=== PATIENT | female | born 1995 | race Caucasian/White ===

== ENCOUNTER 2019-03-02 09:09 | Emergency (ER) | payer OTHER, SELFPAY ==
[2019-03-02 09:20] VITALS: BP 125/74; PULSE 66; RESP 18; TEMP 36.6; O2SAT 98
[2019-03-02 10:26] LABS: WBC Urine None Seen (0-5/HPF)
[2019-03-02 10:42] LABS: RBC Urine 10-30/HPF (0-5/HPF); Squamous Epithelial Cell Urine 0-1 /HPF (0-5/HPF)
[2019-03-02 10:43] LABS: Bacteria Urine Few (2-10); Culture Indicated Urine Cult Not Indicated
--- NOTE | 2019-03-02 11:17 | DI.CT.S_ITS ---
PROCEDURE: CT KIDNEY URETER BLADDER (KUB) INDICATIONS: right sided flank pain TECHNIQUE: Noncontrast 5 mm thick sections acquired from the diaphragms to the symphysis. 5 mm thick coronal and sagittal reformats were then performed. For radiation dose reduction, the following was used: automated exposure control, adjustment of mA and/or kV according to patient size. COMPARISON: None. FINDINGS: Image quality: Excellent. Lung bases: Lung bases are clear. Heart size is normal. Urinary system: The right kidney is hypodense when compared to the left kidney and demonstrates moderate right-sided hydronephrosis with corresponding moderate hydroureter. There is a 2 mm calculus identified within the distal right ureter near the vesicoureteral junction (image 68, series 2). No additional right-sided renal calculi are appreciated. There is a 3 mm calculus evident and involving the upper portion of the left kidney. Vague parenchymal calcifications are also probably present within the more superior aspects of the left kidney. There is no hydronephrosis of the left kidney. No left ureteral calculi are identified. No significant urinary bladder wall thickening is evident. No definite renal lesions are appreciated. However, the kidneys are not adequately evaluated for parenchymal abnormalities without contrast. Other solid organs: The liver, spleen, adrenals, and pancreas appear to be within normal limits. Peritoneum and bowel: The stomach is unremarkable. The small bowel loops are nondilated. There is a large amount of stool identified within the distal colon. The appendix is not definitively identified. However, what is felt to represent the appendix (image 50, series 2) is normal in size. No free fluid or loculated fluid collection is appreciated. There is no free air. Nodes and vessels: No retroperitoneal or mesenteric adenopathy by size criteria. Aorta and inferior vena cava are normal in caliber. Pelvis: No free pelvic fluid. No inguinal hernias or adenopathy. No free fluid or loculated fluid collection is identified. The uterus and ovaries are not adequately evaluated, but do not appear to be enlarged. There may be a collapsing right ovarian cyst measuring up to 2 cm. Bones: No suspicious bony lesions. No vertebral body compression fractures. Mild straightening of the normal lumbar lordosis is present with slight dextroconvex curvature of the thoracolumbar junction. IMPRESSION: 1. At least partially obstructing distal right ureteral calculus measuring approximately 2 mm at the vesicoureteral junction with corresponding moderate hydronephrosis and hydroureter. 2. Nonobstructing left nephrolithiasis. No left-sided hydronephrosis. 3. The appendix appears to be within normal limits. 4. Probable constipation. No bowel obstruction. 5. Probable collapsing right ovarian cyst. The need for a pelvic ultrasound may be determined clinically. Dictated by: Yonny Balbuena M.D. on 03/02/2019 at 10:57 Approved by: Yonny Balbuena M.D. on 03/02/2019 at 11:01
[2019-03-02] MEDS: SODIUM CHLORIDE 0.9% 1,000 ML 1000 ML IV (11:44)
[2019-03-02] MEDS: ONDANSETRON 4 MG/2 ML INJ IV (11:50)
--- NOTE | 2019-03-02 11:50 | ED.FEMALEGU ---
HPI - Female Genitourinary <LUDWIG Caba - Last Filed: 03/02/19 16:10> General Chief complaint: Urogenital-Female Stated complaint: suspected UTI, back pain right side Time Seen by Provider: 03/02/19 11:03 Source: patient Mode of arrival: Ambulatory Limitations: no limitations History of Present Illness HPI Narrative: The patient is a 23-year-old female nonsmoker who denies pertinent medical history presents with a chief complaint of sudden onset of right-sided flank pain and hematuria this morning. She complains of inability to urinate. The pain is constant low-grade, but then gets worse at times with associated nausea with no vomiting. She states the pain is associated in her right flank. She denies any vaginal discharge, irregular vaginal bleeding, concern about sexually transmitted infections. She states she is having some bladder spasms, but no abdominal pain. She denies any fevers. She states that she has an allergy to penicillin but has taken amoxicillin in been fine. Related Data Previous Rx's Medication Instructions Recorded hydrocodone-acetaminophen [[employer]] 1 tab PO Q4-6H PRN #7 tab 03/02/19 ketorolac 10 mg PO TID PRN #15 tab 03/02/19 ondansetron 4 mg PO Q6H PRN #20 tab 03/02/19 tamsulosin [Flomax] 0.4 mg PO DAILY #7 cap 03/02/19 Review of Systems <LUDWIG Caba - Last Filed: 03/02/19 16:10> Review of Systems Narrative: GENERAL: Denies chills, fatigue, malaise, fever, sweats. HEENT: Denies sinus pain, ear pain, sore throat, difficulty swallowing, dizziness. RESPIRATORY: Denies dyspnea, cough, wheezing, hemoptysis, sputum. CARDIOVASCULAR: Denies chest pain, palpitations, orthopnea, edema, GASTROINTESTINAL: See HPI : See HPI MUSCULOSKELETAL: denies weakness, joint pain, or bony pain SKIN: Denies rash, skin lesions, or other NEUROLOGIC: Denies weakness, headache, numbness, change in speech, confusion, seizures, incoordination. PSYCHIATRIC: No concerning psychosocial issues. 12 point review of systems is negative except for those stated above Patient History <LUDWIG Caba - Last Filed: 03/02/19 16:10> alcohol intake frequency: 0-2 drinks per day Substance Use Type: does not use Exam <HEATHER Caba - Last Filed: 03/02/19 16:10> Narrative Exam Narrative: GENERAL: This is a well-nourished, well-developed patient, lying on her side in no acute distress HEAD: Atraumatic. Normocephalic. No temporal or scalp tenderness. EYES: Pupils equal round and reactive. Extraocular motions intact. No scleral icterus. No injection or drainage. ENT: Nose without bleeding, purulent drainage or septal hematoma. Throat without erythema, tonsillar hypertrophy or exudate. Uvula midline. Airway patent. NECK: Trachea midline. No JVD or lymphadenopathy. Supple, nontender, no meningeal signs. CARDIOVASCULAR: Regular rate and rhythm RESPIRATORY: Clear to auscultation. Breath sounds equal bilaterally. No wheezes, rales, or rhonchi. No cough. No increased respiratory effort. No accessory muscle use. GASTROINTESTINAL: Abdomen soft, diffusely tender to palpation, nondistended. No hepato-splenomegaly, or palpable masses. No guarding. EXTREMITIES: No clubbing, cyanosis, or edema. No joint tenderness, effusion, or edema noted. BACK: Nontender without deformity or crepitance. CVA tenderness on right side, no tenderness on left side NEURO: AOx3. SKIN: No rash or erythema on visible skin Initial Vital Signs Initial Vital Signs: Vital Signs Temperature 98 F 03/02/19 09:20 Pulse Rate 66 03/02/19 09:20 Respiratory Rate 18 03/02/19 09:20 Blood Pressure 125/74 03/02/19 09:20 Pulse Oximetry 98 03/02/19 09:20 <Cele Cardenas MD - Last Filed: 03/02/19 18:54> Initial Vital Signs Initial Vital Signs: Vital Signs Temperature 98 F 03/02/19 09:20 Pulse Rate 66 03/02/19 09:20 Respiratory Rate 18 03/02/19 09:20 Blood Pressure 125/74 03/02/19 09:20 Pulse Oximetry 98 03/02/19 09:20 Course <HEATHER Caba - Last Filed: 03/02/19 16:10> Orders Ordered: ED Orders 03/02/19 11:17 CT kidney ureter bladder (KUB) Stat 03/02/19 11:40 Complete Blood Count AUTO DIFF Stat Comprehensive Metabolic Panel Stat Lipase Stat Procalcitonin Stat Discontinued Medications Sodium Chloride (Normal Saline 0.9%) 1,000 mls @ 1,000 mls/hr IV BOLUS ONE Stop: 03/02/19 12:17 Last Infusion: 03/02/19 12:32 Dose: 0 mls/hr Documented by: Admin: 03/02/19 11:44 Dose: 1,000 mls/hr Documented by: JUSTUS Ketorolac Tromethamine (Toradol) 30 mg IV NOW ONE Stop: 03/02/19 11:49 Last Admin: 03/02/19 11:51 Dose: 30 mg Documented by: JUSTUS Ondansetron HCl (Zofran) 4 mg IV NOW ONE Stop: 03/02/19 11:18 Last Admin: 03/02/19 11:50 Dose: 4 mg Documented by: JUSTUS Vital Signs Vital signs: Vital Signs - 8 hr 03/02/19 13:00 Pulse Rate 84 Respiratory Rate 16 Blood Pressure 116/86 Pulse Oximetry 98 <Cele Cardenas MD - Last Filed: 03/02/19 18:54> Orders Ordered: ED Orders 03/02/19 11:17 CT kidney ureter bladder (KUB) Stat 03/02/19 11:40 Complete Blood Count AUTO DIFF Stat Comprehensive Metabolic Panel Stat Lipase Stat Procalcitonin Stat Discontinued Medications Sodium Chloride (Normal Saline 0.9%) 1,000 mls @ 1,000 mls/hr IV BOLUS ONE Stop: 03/02/19 12:17 Last Infusion: 03/02/19 12:32 Dose: 0 mls/hr Documented by: Admin: 03/02/19 11:44 Dose: 1,000 mls/hr Documented by: JUSTUS Ketorolac Tromethamine (Toradol) 30 mg IV NOW ONE Stop: 03/02/19 11:49 Last Admin: 03/02/19 11:51 Dose: 30 mg Documented by: JUSTUS Ondansetron HCl (Zofran) 4 mg IV NOW ONE Stop: 03/02/19 11:18 Last Admin: 03/02/19 11:50 Dose: 4 mg Documented by: JUSTUS Vital Signs Vital signs: Vital Signs - 8 hr 03/02/19 13:00 Pulse Rate 84 Respiratory Rate 16 Blood Pressure 116/86 Pulse Oximetry 98 MDM - Female Genitourinary <TRIXIE Caba- - Last Filed: 03/02/19 16:10> Differential Diagnosis Differential diagnosis: Likely urinary tract infection, cystitis and other (Pyelonephritis, kidney stone) Lab Data Attestation: I reviewed the patient's lab results. Result diagrams: 03/02/19 11:40 03/02/19 11:40 Labs: Lab Results 03/02/19 03/02/19 03/02/19 Range/Units 09:25 11:40 11:40 WBC 11.3 H (4.5-11.0) X10^3/uL RBC 4.91 (4.0-5.2) X10^6/uL Hgb 15.0 (12.0-16.0) g/dL Hct 42.4 (36-46) % MCV 86.3 (80-100) fL MCH 30.5 (26-34) PG MCHC 35.4 (30-36) % RDW 12.5 (11.6-14.8) % Plt Count 277 (150-400) X10^3/uL Neut % (Auto) 87.2 H (50-75) % Lymph % (Auto) 8.9 L (25-40) % [place] % (Auto) 3.6 (3-14) % Eos % (Auto) 0.1 L (2-4) % Baso % (Auto) 0.2 (0-2) % Neut # (Auto) 9900 H (1511-5549) /uL Lymph # (Auto) 1000 L (7944-2125) /uL [place] # (Auto) 400 (0-900) /uL Eos # (Auto) 0 (0-450) /uL Baso # (Auto) 0 (0-100) /uL Sodium 140 (137-145) mmol/L Potassium 3.6 (3.4-5.1) mmol/L Chloride 104 (98-107) mmol/L Carbon Dioxide 24 (22-32) mmol/L BUN 17 (7-17) mg/dL Creatinine 0.70 (0.52-1.04) mg/dL Estimated GFR > 60.0 (>60) mL/min BUN/Creatinine Ratio 24.3 H (6-22) Glucose 112 H (70-100) mg/dL Calcium 10.1 (8.4-10.2) mg/dL Total Bilirubin 0.9 (0.2-1.3) mg/dL AST 27 (14-36) IU/L ALT 18 (<35) IU/L Alkaline Phosphatase 82 (38-126) U/L Total Protein 8.6 H (6.3-8.2) g/dL Albumin 5.2 H (3.5-5.0) g/dL Globulin 3.4 (1.7-4.1) g/dL Albumin/Globulin Ratio 1.5 (1.0-2.8) Lipase 50 (23-300) U/L Procalcitonin (<0.5) ng/mL Urine RBC 10-30/hpf H (0-5/HPF) Urine WBC None seen (0-5/HPF) Ur Squamous Epith Cells 0-1 /hpf (0-5/HPF) Urine Bacteria Few (2-10) H (None) Ur Culture Indicated? Cult not indicated 03/02/19 Range/Units 11:40 WBC (4.5-11.0) X10^3/uL RBC (4.0-5.2) X10^6/uL Hgb (12.0-16.0) g/dL Hct (36-46) % MCV (80-100) fL MCH (26-34) PG MCHC (30-36) % RDW (11.6-14.8) % Plt Count (150-400) X10^3/uL Neut % (Auto) (50-75) % Lymph % (Auto) (25-40) % [place] % (Auto) (3-14) % Eos % (Auto) (2-4) % Baso % (Auto) (0-2) % Neut # (Auto) (5204-5852) /uL Lymph # (Auto) (3095-8660) /uL [place] # (Auto) (0-900) /uL Eos # (Auto) (0-450) /uL Baso # (Auto) (0-100) /uL Sodium (137-145) mmol/L Potassium (3.4-5.1) mmol/L Chloride (98-107) mmol/L Carbon Dioxide (22-32) mmol/L BUN (7-17) mg/dL Creatinine (0.52-1.04) mg/dL Estimated GFR (>60) mL/min BUN/Creatinine Ratio (6-22) Glucose (70-100) mg/dL Calcium (8.4-10.2) mg/dL Total Bilirubin (0.2-1.3) mg/dL AST (14-36) IU/L ALT (<35) IU/L Alkaline Phosphatase (38-126) U/L Total Protein (6.3-8.2) g/dL Albumin (3.5-5.0) g/dL Globulin (1.7-4.1) g/dL Albumin/Globulin Ratio (1.0-2.8) Lipase (23-300) U/L Procalcitonin < 0.05 (<0.5) ng/mL Urine RBC (0-5/HPF) Urine WBC (0-5/HPF) Ur Squamous Epith Cells (0-5/HPF) Urine Bacteria (None) Ur Culture Indicated? Point of Care Testing Test Results Negative Urine Dip Bedside Urine Glucose Negative Bedside Urine Bilirubin - Negative Bedside Urine Ketone - Negative Urine Specific [place] 1.025 Bedside Urine Occult Blood +++ Bedside Urine pH 6.5 Bedside Urine Protein +/- 15 Bedside Urine Urobilinogen - Negative Bedside Urine Nitrite - Negative Bedside Urine Leukocytes - Negative Esterase Imaging Data CT scan - abdomen/pelvis: Radiologist's Impression: [address] [place] [address] CT Scan Report Signed Patient: Angel Lino CMR#: [id number] : 1995Acct:[id number] Age/Sex: 23 FDate of Service: 03/02/19 Loc: ED Accession Number: [id number] Procedure: CT kidney ureter bladder (KUB) Ordering Provider: Kristie Wesley PROCEDURE: CT KIDNEY URETER BLADDER (KUB) INDICATIONS: right sided flank pain TECHNIQUE: Noncontrast 5 mm thick sections acquired from the diaphragms to the symphysis. 5 mm thick coronal and sagittal reformats were then performed. For radiation dose reduction, the following was used: automated exposure control, adjustment of mA and/or kV according to patient size. COMPARISON: None. FINDINGS: Image quality: Excellent. Lung bases: Lung bases are clear. Heart size is normal. Urinary system: The right kidney is hypodense when compared to the left kidney and demonstrates moderate right-sided hydronephrosis with corresponding moderate hydroureter. There is a 2 mm calculus identified within the distal right ureter near the vesicoureteral junction (image 68, series 2). No additional right-sided renal calculi are appreciated. There is a 3 mm calculus evident and involving the upper portion of the left kidney. Vague parenchymal calcifications are also probably present within the more superior aspects of the left kidney. There is no hydronephrosis of the left kidney. No left ureteral calculi are identified. No significant urinary bladder wall thickening is evident. No definite renal lesions are appreciated. However, the kidneys are not adequately evaluated for parenchymal abnormalities without contrast. Other solid organs: The liver, spleen, adrenals, and pancreas appear to be within normal limits. Peritoneum and bowel: The stomach is unremarkable. The small bowel loops are nondilated. There is a large amount of stool identified within the distal colon. The appendix is not definitively identified. However, what is felt to represent the appendix (image 50, series 2) is normal in size. No free fluid or loculated fluid collection is appreciated. There is no free air. Nodes and vessels: No retroperitoneal or mesenteric adenopathy by size criteria. Aorta and inferior vena cava are normal in caliber. Pelvis: No free pelvic fluid. No inguinal hernias or adenopathy. No free fluid or loculated fluid collection is identified. The uterus and ovaries are not adequately evaluated, but do not appear to be enlarged. There may be a collapsing right ovarian cyst measuring up to 2 cm. Bones: No suspicious bony lesions. No vertebral body compression fractures. Mild straightening of the normal lumbar lordosis is present with slight dextroconvex curvature of the thoracolumbar junction. IMPRESSION: 1. At least partially obstructing distal right ureteral calculus measuring approximately 2 mm at the vesicoureteral junction with corresponding moderate hydronephrosis and hydroureter. 2. Nonobstructing left nephrolithiasis. No left-sided hydronephrosis. 3. The appendix appears to be within normal limits. 4. Probable constipation. No bowel obstruction. 5. Probable collapsing right ovarian cyst. The need for a pelvic ultrasound may be determined clinically. Dictated by: Yonny Balbuena M.D. on 03/02/2019 at 10:57 Approved by: Yonny Balbuena M.D. on 03/02/2019 at 11:01 [facility] Narrative Medical decision making narrative: The patient is a 23-year-old female who presents with a chief complaint of sudden onset of flank pain. Given the sudden onset, I did obtain a CT scan of her kidneys ureter bladder to evaluate for potential stone. She has a right ureteral stone at 2 mm. Also discussed incidental findings of left nephrolithiasis, possible right ovarian cyst. She states that she recently had a transvaginal ultrasound is not surprised that she has a cyst. She also has no pain to palpation right lower quadrant, so I believe that this an incidental finding. Discussed at length pushing fluids, patient felt better Toradol, gave prescriptions of Toradol Zofran Flomax and [employer]. Discussed that [employer] can be constipating and sedating. Patient has no signs of infection in her urine, is nitrate negative, negative procalcitonin. Discussed at length that she is to follow up with primary care provider in the next few days, strain her urine. Discussed at length return precautions including fever, inability to keep down fluids. Discussed not combining Toradol with any other NSAIDs. Patient has no questions or concerns upon discharge and states understanding of return precautions as well as follow-up care. <Cele Cardenas MD - Last Filed: 03/02/19 18:54> Lab Data Labs: Lab Results 03/02/19 03/02/19 03/02/19 Range/Units 09:25 11:40 11:40 WBC 11.3 H (4.5-11.0) X10^3/uL RBC 4.91 (4.0-5.2) X10^6/uL Hgb 15.0 (12.0-16.0) g/dL Hct 42.4 (36-46) % MCV 86.3 (80-100) fL MCH 30.5 (26-34) PG MCHC 35.4 (30-36) % RDW 12.5 (11.6-14.8) % Plt Count 277 (150-400) X10^3/uL Neut % (Auto) 87.2 H (50-75) % Lymph % (Auto) 8.9 L (25-40) % [place] % (Auto) 3.6 (3-14) % Eos % (Auto) 0.1 L (2-4) % Baso % (Auto) 0.2 (0-2) % Neut # (Auto) 9900 H (4657-8134) /uL Lymph # (Auto) 1000 L (4075-4444) /uL [place] # (Auto) 400 (0-900) /uL Eos # (Auto) 0 (0-450) /uL Baso # (Auto) 0 (0-100) /uL Sodium 140 (137-145) mmol/L Potassium 3.6 (3.4-5.1) mmol/L Chloride 104 (98-107) mmol/L Carbon Dioxide 24 (22-32) mmol/L BUN 17 (7-17) mg/dL Creatinine 0.70 (0.52-1.04) mg/dL Estimated GFR > 60.0 (>60) mL/min BUN/Creatinine Ratio 24.3 H (6-22) Glucose 112 H (70-100) mg/dL Calcium 10.1 (8.4-10.2) mg/dL Total Bilirubin 0.9 (0.2-1.3) mg/dL AST 27 (14-36) IU/L ALT 18 (<35) IU/L Alkaline Phosphatase 82 (38-126) U/L Total Protein 8.6 H (6.3-8.2) g/dL Albumin 5.2 H (3.5-5.0) g/dL Globulin 3.4 (1.7-4.1) g/dL Albumin/Globulin Ratio 1.5 (1.0-2.8) Lipase 50 (23-300) U/L Procalcitonin (<0.5) ng/mL Urine RBC 10-30/hpf H (0-5/HPF) Urine WBC None seen (0-5/HPF) Ur Squamous Epith Cells 0-1 /hpf (0-5/HPF) Urine Bacteria Few (2-10) H (None) Ur Culture Indicated? Cult not indicated 03/02/19 Range/Units 11:40 WBC (4.5-11.0) X10^3/uL RBC (4.0-5.2) X10^6/uL Hgb (12.0-16.0) g/dL Hct (36-46) % MCV (80-100) fL MCH (26-34) PG MCHC (30-36) % RDW (11.6-14.8) % Plt Count (150-400) X10^3/uL Neut % (Auto) (50-75) % Lymph % (Auto) (25-40) % [place] % (Auto) (3-14) % Eos % (Auto) (2-4) % Baso % (Auto) (0-2) % Neut # (Auto) (3834-2338) /uL Lymph # (Auto) (0050-9790) /uL [place] # (Auto) (0-900) /uL Eos # (Auto) (0-450) /uL Baso # (Auto) (0-100) /uL Sodium (137-145) mmol/L Potassium (3.4-5.1) mmol/L Chloride (98-107) mmol/L Carbon Dioxide (22-32) mmol/L BUN (7-17) mg/dL Creatinine (0.52-1.04) mg/dL Estimated GFR (>60) mL/min BUN/Creatinine Ratio (6-22) Glucose (70-100) mg/dL Calcium (8.4-10.2) mg/dL Total Bilirubin (0.2-1.3) mg/dL AST (14-36) IU/L ALT (<35) IU/L Alkaline Phosphatase (38-126) U/L Total Protein (6.3-8.2) g/dL Albumin (3.5-5.0) g/dL Globulin (1.7-4.1) g/dL Albumin/Globulin Ratio (1.0-2.8) Lipase (23-300) U/L Procalcitonin < 0.05 (<0.5) ng/mL Urine RBC (0-5/HPF) Urine WBC (0-5/HPF) Ur Squamous Epith Cells (0-5/HPF) Urine Bacteria (None) Ur Culture Indicated? Point of Care Testing Test Results Negative Urine Dip Bedside Urine Glucose Negative Bedside Urine Bilirubin - Negative Bedside Urine Ketone - Negative Urine Specific [place] 1.025 Bedside Urine Occult Blood +++ Bedside Urine pH 6.5 Bedside Urine Protein +/- 15 Bedside Urine Urobilinogen - Negative Bedside Urine Nitrite - Negative Bedside Urine Leukocytes - Negative Esterase Discharge Plan Departure Patient Disposition: Home Clinical Impression: Right ureteral calculus, Left nephrolithiasis Ovarian cyst Qualifiers: Laterality: right Qualified Code(s): N83.201 - Unspecified ovarian cyst, right side Discharge Date/Time: 03/02/19 13:00 Instructions: DI for Kidney Stones, DI for Ovarian Cyst Activity Restrictions/Additional Instructions: Today we found a 2 mm stone in your right ureter. I believe this is what is causing her pain. We also found a small kidney stone in your left kidney. In addition there is a probable ovarian cyst on your right side. Please follow up with primary care provider regarding this. I have sent four prescriptions to [facility] in [place] Please push fluids over the next few days. Please follow-up with primary care provider in the next few days. Please strain your urine. Please monitor for signs of urinary tract infection including fever, burning with urination etcetera please follow up with these occur I have given you a prescription of Toradol. This is an NSAID. Do not combine it with other NSAIDs such as Aleve or ibuprofen. I suggest taking it with some food, as it can irritate your stomach. I have given you a prescription of a narcotic for pain. Be aware that this can be constipating and sedating. I encouraged taking with a stool softener, pushing fluids and fiber. Do not take and drive, operate heavy machinery, etc. Do not combine it with any other sedating substances such as alcohol. The combination of narcotics and alcohol and/or other sedatives can be lethal. Please be aware that we do not provide refills of controlled substances in the emergency department. Please follow up with your primary care provider. Prescriptions: New tamsulosin [Flomax] 0.4 mg capsule 0.4 mg PO DAILY Qty: 7 RF: 0 ketorolac 10 mg tablet 10 mg PO TID PRN (Reason: pain) Qty: 15 RF: 0 hydrocodone-acetaminophen [[employer]] 5-325 mg tablet 1 tab PO Q4-6H PRN (Reason: pain) Qty: 7 RF: 0 ondansetron 4 mg tablet,disintegrating 4 mg PO Q6H PRN (Reason: nausea and vomiting) Qty: 20 RF: 0 Referrals: [facility] [Provider Group]
[2019-03-02] MEDS: KETOROLAC 60 MG/2 ML VIAL 30 MG IV (11:51)
[2019-03-02 11:53] LABS: Add Manual Diff / Slide Review NO; Basophils Absolute Auto 0 /uL (0-100); Basophils Percent Auto 0.2 % (0-2); Eosinophils Absolute Auto 0 /uL (0-450); Eosinophils Percent Auto 0.1 % (2-4); Hematocrit 42.4 % (36-46); Lymphocytes Absolute Auto 1000 /uL (1100-4500); Lymphocytes Percent Auto 8.9 % (25-40); Mean Corpuscular HGB Conc 35.4 % (30-36); Mean Corpuscular Hemoglobin 30.5 PG (26-34); Mean Corpuscular Volume 86.3 fL (80-100); Monocytes Absolute Auto 400 /uL (0-900); Monocytes Percent Auto 3.6 % (3-14); Neutrophils Absolute Auto 9900 /uL (1500-7000); Neutrophils Percent Auto 87.2 % (50-75); Platelet Count 277 X10^3/uL (150-400); Red Blood Cell Count 4.91 X10^6/uL (4.0-5.2); Red Cell Distribution Width 12.5 % (11.6-14.8); White Blood Cell Count 11.3 X10^3/uL (4.5-11.0)
[2019-03-02 12:03] LABS: Alanine Aminotransferase 18 IU/L (<35); Albumin 5.2 g/dL (3.5-5.0); Albumin Globulin Ratio 1.5 (1.0-2.8); Alkaline Phosphatase 82 U/L (38-126); Aspartate Aminotransferase 27 IU/L (14-36); BUN Creatinine Ratio 24.3 (6-22); Bilirubin Total 0.9 mg/dL (0.2-1.3); Blood Urea Nitrogen 17 mg/dL (7-17); Calcium 10.1 mg/dL (8.4-10.2); Carbon Dioxide 24 mmol/L (22-32); Chloride 104 mmol/L (98-107); Estimated Glomerular Filt Rate > 60.0 mL/min (>60); Globulin 3.4 g/dL (1.7-4.1); Glucose 112 mg/dL (70-100); HEMOLYSIS < 15 (0-50); Lipase 50 U/L (23-300); Potassium 3.6 mmol/L (3.4-5.1); Sodium 140 mmol/L (137-145); Total Protein 8.6 g/dL (6.3-8.2)
[2019-03-02 12:21] LABS: Procalcitonin < 0.05 ng/mL (<0.5)
[2019-03-02 13:00] VITALS: BP 116/86; PULSE 84; RESP 16; O2SAT 98
== END 2019-03-02 13:00 | disposition home or self-care (01) ==
PROVIDERS: Emergency Medicine; Emergency Provider Nurse Practitioner Family
DX: N20.1 Calculus of ureter (principal); N20.0 Calculus of kidney; N83.201 Unspecified ovarian cyst, right side
CPT/HCPCS: 36415; 74176; 80053; 81003; 81015; 81025; 83690; 84145; 85025; 87086; 96361; 96374; 96375; 99284; J1885; J2405

== ENCOUNTER 2020-04-30 08:49 | Emergency (ER) | payer OTHER, SELFPAY ==
[2020-04-30 09:07] VITALS: BP 141/79; PULSE 86; RESP 18; TEMP 37.2; O2SAT 100; BMI 21.6
[2020-04-30] MEDS: ONDANSETRON 4 MG ODT PO (09:24)
--- NOTE | 2020-04-30 09:59 | ED.PREGNANCY ---
HPI - General Chief complaint: OB/Uterine Contractions Stated complaint: Severe Morning Sickness Time Seen by Provider: 04/30/20 09:58 Source: patient Mode of arrival: Family Vehicle Limitations: no limitations History of Present Illness HPI Narrative: This is a 24-year-old female comes in at approximately 6 and half weeks . Patient has developed nausea. She states she has had dry he is intermittently and had 1 episode of emesis with food. She states she has had difficulty hydrating and eating. She has tried salvador. She has not tried B6 that was recommended by her electromatic typist providers. Patient states no fevers or chills. No chest pain or shortness of breath. She has had occasional cramping but improves when she drinks water. She has had no vaginal bleeding. No vaginal discharge. No dysuria, urgency or frequency. Patient states she is otherwise healthy no prior surgeries. Her prior and did with spontaneous miscarriage and she states she had not realize she was and thought she was having heavy period until after the fact. She does have care established although she has not had a [id number] visit yet. Patient : Yes Related Data Home Medications Medication Instructions Recorded Confirmed vit no.[id number] 1 tab DAILY 04/30/20 04/30/20 [Classic ] Previous Rx's Medication Instructions Recorded ondansetron 4 mg PO Q6H PRN #10 tab 04/30/20 Allergies Allergy/AdvReac Type Severity Reaction Status Date / Time Penicillins Allergy Intermediate Hives Verified 04/30/20 09:14 Review of Systems Review of Systems ROS Unobtainable: All systems reviewed & are unremarkable except as noted in HPI and below PMFSH - Past Medical History Medical history: Reports no medical history Surgical history: Reports no surgical history CIRCUITRY NEGATIVE INSPECTOR history: Reports Spontaneous (x1) Patient : Yes Psychiatric history: Reports no psych history Exam Narrative Exam Narrative: GENERAL: Alert and oriented x three, well-nourished, well-appearing female in mild distress. HEENT: Head normocephalic, atraumatic, EOMI, pupils reactive, face symmetric, moist mucous membranes NECK: Supple, full range of motion CARDIOVASCULAR: Regular rate and rhythm without murmurs, rubs or gallops. RESPIRATORY: Breath sounds equal bilaterally, no wheezes rales or rhonchi. ABDOMEN: Soft, nontender. Normoactive bowel sounds all 4 quadrants. No guarding or rebound, rigidity, no mass : No CVA tenderness EXTREMITIES: Normal range of motion, no clubbing or edema. Neurovascularly intact NEUROLOGICAL: Cranial nerves II through XII grossly intact. Moving all extremities SKIN: Warm, dry, no petechiae, no rashes or lesions. Initial Vital Signs Initial Vital Signs: Vital Signs Temperature 99.0 F 04/30/20 09:07 Pulse Rate 86 04/30/20 09:07 Respiratory Rate 18 04/30/20 09:07 Blood Pressure 141/79 H 04/30/20 09:07 Pulse Oximetry 100 04/30/20 09:07 Course Orders Ordered: Discontinued Medications Sodium Chloride (Normal Saline 0.9%) 1,000 mls @ 1,000 mls/hr IV BOLUS ONE Stop: 04/30/20 11:12 Last Admin: 04/30/20 10:31 Dose: Not Given Documented by: GODWIN Ondansetron HCl (Ondansetron 4 Mg Odt) 4 mg PO NOW ONE Stop: 04/30/20 09:21 Last Admin: 04/30/20 09:24 Dose: 4 mg Documented by: MINO Vital Signs Vital signs: Vital Signs - 8 hr 04/30/20 09:07 04/30/20 10:34 Temperature 99.0 F Pulse Rate 86 81 Respiratory Rate 18 18 Blood Pressure 141/79 H 125/62 Pulse Oximetry 100 99 MDM - OB/Uterine Contractions Lab Data Attestation: I reviewed the patient's lab results. Labs: Urine Dip Bedside Urine Glucose Negative Bedside Urine Bilirubin - Negative Bedside Urine Ketone + 15 Urine Specific [place] 1.015 Bedside Urine Occult Blood - Negative Bedside Urine pH 6.0 Bedside Urine Protein - Negative Bedside Urine Urobilinogen - Negative Bedside Urine Nitrite - Negative Bedside Urine Leukocytes - Negative Esterase [facility] Narrative Medical decision making narrative: 24-year-old female at 6 weeks with morning sickness. Patient had a Zofran department feels significantly better. She initially requested IV fluids but then changed her mind. Patient does have a follow up for care scheduled. Recommended to return if she has new abdominal pain or worsening symptoms. Was given a short-term prescription for Zofran but recommended to start with the vitamin B6 initially. Discharge Plan Departure Patient Disposition: Home Clinical Impression: Morning sickness Instructions: DI for Morning Sickness Activity Restrictions/Additional Instructions: Follow-up with your OBGYN provider. You can call their office at any time for direction. I would recommend trying the vitamin B6 that was recommended by your OBGYN provider. If this is an adequate you can try Zofran 1 tablet every 6 hours as needed for nausea. Prescription to [facility] in [place]. Return for fevers, lightheadedness or passing out, new chest pain or shortness of breath, new abdominal pain, vaginal bleeding, fluid leakage, persistent vomiting, signs of dehydration or other new or concerning symptoms. Prescriptions: New ondansetron 4 mg tablet,disintegrating 4 mg PO Q6H PRN (Reason: nausea and vomiting) Qty: 10 RF: 0 No Action Classic 28 mg iron- 800 mcg Tablet 1 tab DAILY RF: 0
[2020-04-30 10:34] VITALS: BP 125/62; PULSE 81; RESP 18; O2SAT 99
== END 2020-04-30 10:34 | disposition home or self-care (01) ==
PROVIDERS: Emergency Provider Emergency Medicine
DX: O21.0 Mild hyperemesis gravidarum (principal); Z3A.01 Less than 8 weeks gestation of pregnancy
CPT/HCPCS: 81003; 99281; 99282

== ENCOUNTER → 2020-05-21 10:16 | Outpatient (CLI) | payer OTHER, SELFPAY ==
[2020-05-21 10:50] LABS: Add Manual Diff / Slide Review NO; Basophils Absolute Auto 0 /uL (0-100); Basophils Percent Auto 0.2 % (0-2); Eosinophils Absolute Auto 0 /uL (0-450); Eosinophils Percent Auto 0.1 % (2-4); Lymphocytes Absolute Auto 1100 /uL (1100-4500); Lymphocytes Percent Auto 11.7 % (25-40); Mean Corpuscular Hemoglobin 29.7 PG (26-34); Mean Corpuscular Volume 84.7 fL (80-100); Monocytes Absolute Auto 500 /uL (0-900); Monocytes Percent Auto 4.8 % (3-14); Neutrophils Absolute Auto 8100 /uL (1500-7000); Neutrophils Percent Auto 83.2 % (50-75); Platelet Count 230 X10^3/uL (150-400); Red Blood Cell Count 4.73 X10^6/uL (4.0-5.2); Red Cell Distribution Width 12.4 % (11.6-14.8); White Blood Cell Count 9.7 X10^3/uL (4.5-11.0)
[2020-05-21 16:54] LABS: HIV 1 & 2 Ab/Ag 4th Gen Combo NEGATIVE (NEGATIVE); Hep C Virus Ab w/Reflex Quant NEGATIVE s/c (NEGATIVE); Hepatitis B Surface Antigen NEGATIVE s/c (NEGATIVE); Rubella Antibody IgG 22.9 IU/mL (>15)
[2020-05-22 05:36] LABS: RPR Screen Non Reactive (Non Reactive)
[2020-05-23 02:10] LABS: Varicella IgG Antibody 1575 index (Immune >165)
== END ==
PROVIDERS: PCP Family Medicine; Referring Provider Family Medicine; Visit Provider Family Medicine
DX: Z34.81 Encounter for supervision of other normal pregnancy, first trimester (principal)
CPT/HCPCS: 36415; 80055; 86787; 86803; 86850; 86900; 86901; 87389

== ENCOUNTER → 2020-08-02 07:12 | Outpatient (CLI) | payer OTHER, SELFPAY ==
--- NOTE | 2020-08-02 07:13 | DI.US.S_ITS ---
PROCEDURE: US OB >= 14 WEEKS FETUS INDICATIONS: ANATOMY OUTSIDE/PRIOR DATING DATA: Last menstrual period (LMP): 03/15/20 . LMP-based estimated date of delivery (ELLEN): 12/20/20 . First dating scan (date and location): 08/02/20 . Estimated date of delivery (ELLEN) from first dating scan: 12/20/20 . TECHNIQUE: Real-time scanning was performed of the fetus, with image documentation and biometric measurements. Endovaginal scanning: Not performed COMPARISON: None. FINDINGS: General: A single living intrauterine gestation is present. Presentation: Vertex. Placenta: Placental position is posterior , without previa. Amniotic fluid index: 10.7 cm, normal range is 5-24 cm. heart rate: 125 beats per minute. Maternal cervical canal: 4.2 cm long. Normal lower limit is 2.5 cm. biometrics: Biparietal diameter: 4.7 cm, 20 weeks 1 day Head circumference: 17.6 cm, 20 weeks 1 day Abdominal circumference: 14.4 cm, 19 weeks 5 days Femur length: 3.2 cm, 19 weeks 6 days Estimated gestational age from initial scan: not applicable. Composite gestational age from present scan: 20 weeks 0 days Estimated weight and percentile: 319 g, 39th percentile Measurement variability for biometric dating: +/- 7 days from 14 weeks to 15 weeks 6 days gestation, +/- 10 days from 16 weeks to 21 weeks 6 days gestation, +/- 2 weeks from 22 weeks to 27 weeks 6 days gestation, +/- 3 weeks for 28 weeks gestation or later. weight reference: 4500 g or EFW >90/95% is considered macrosomia or large for gestational age. EFW <10% is small for gestational age. EFW 5% or less is considered intra-uterine growth restriction. Anatomic survey: Neuro: Ventricles are non-dilated at less than 10 mm. Cisterna magna is normal at 3-11 mm. Cerebellum is normal in size and morphology. Nuchal skin fold: Normal at less than 6 mm between 14-21 weeks gestational age. Face: Nose and lips, facial profile are normal. Spine: No evidence for spina bifida. Heart: 4-chambered heart is present, with normal ventricular outflow tracts. Diaphragm: Diaphragm is intact. Stomach: Left-sided stomach is present. Kidneys: No hydronephrosis. Normal is less than 5 mm in 2nd trimester, less than 7 mm in 3rd trimester. Cord: 3-vessel cord has orthotopic insertion. Bladder: Normal in size. Extremities: All 4 extremities identified. IMPRESSION: Single living intrauterine fetus in vertex presentation. Growth concordant with reported LMP as above. Normal anatomic survey Dictated by: Smith Ellis M.D. on 08/02/2020 at 14:42 Approved by: Smith Ellis M.D. on 08/02/2020 at 14:46
== END ==
PROVIDERS: Referring Provider Family Medicine; Visit Provider Family Medicine
DX: Z36.89 Encounter for other specified antenatal screening (principal); Z3A.20 20 weeks gestation of pregnancy
CPT/HCPCS: 76811

== ENCOUNTER → 2020-09-04 08:37 | Outpatient (CLI) | payer OTHER, SELFPAY ==
[2020-09-04 09:20] LABS: Appearance Urine UA CLEAR; Bilirubin Urine UA NEGATIVE (NEGATIVE); Color Urine UA YELLOW; Glucose Urine UA NEGATIVE (Negative); Ketones Urine UA NEGATIVE (NEGATIVE); Leukocyte Esterase Urine UA NEGATIVE (NEGATIVE); Nitrite Urine UA NEGATIVE (Negative); Occult Blood Urine UA NEGATIVE (Negative); Protein Urine UA NEGATIVE (Negative); Urobilinogen Urine UA 0.2 E.U./dL (0.2)
[2020-09-04 09:33] LABS: pH Urine UA 6.5 (4.5-8.0)
[2020-09-04 10:40] LABS: Add Manual Diff / Slide Review NO; Basophils Absolute Auto 0 /uL (0-100); Basophils Percent Auto 0.1 % (0-2); Eosinophils Absolute Auto 0 /uL (0-450); Eosinophils Percent Auto 0.1 % (2-4); Hematocrit 33.5 % (36-46); Hemoglobin 11.7 g/dL (12.0-16.0); Lymphocytes Absolute Auto 1200 /uL (1100-4500); Lymphocytes Percent Auto 10.1 % (25-40); Mean Corpuscular HGB Conc 34.9 % (30-36); Mean Corpuscular Hemoglobin 31.6 PG (26-34); Mean Corpuscular Volume 90.3 fL (80-100); Monocytes Absolute Auto 600 /uL (0-900); Monocytes Percent Auto 5.3 % (3-14); Neutrophils Absolute Auto 10300 /uL (1500-7000); Neutrophils Percent Auto 84.4 % (50-75); Platelet Count 216 X10^3/uL (150-400); Red Blood Cell Count 3.71 X10^6/uL (4.0-5.2); Red Cell Distribution Width 13.4 % (11.6-14.8); White Blood Cell Count 12.2 X10^3/uL (4.5-11.0)
[2020-09-04 10:46] LABS: GTT (PREG) 1 Hour PP 50gm Dose 119 mg/dL (76-139)
== END ==
PROVIDERS: Referring Provider Family Medicine; Visit Provider Family Medicine
DX: Z34.81 Encounter for supervision of other normal pregnancy, first trimester (principal)
CPT/HCPCS: 36415; 81003; 82950; 85025; 87077; 87086

== ENCOUNTER 2020-10-20 16:18 | Outpatient (CLI) | payer OTHER, SELFPAY ==
[2020-10-20 17:52] LABS: Bacteria Urine None Seen; RBC Urine None Seen (0-5/HPF); WBC Urine None Seen (0-5/HPF)
[2020-10-20 17:55] LABS: Appearance Urine UA CLEAR; Bilirubin Urine UA NEGATIVE (NEGATIVE); Color Urine UA YELLOW; Glucose Urine UA NEGATIVE (Negative); Ketones Urine UA NEGATIVE (NEGATIVE); Leukocyte Esterase Urine UA NEGATIVE (NEGATIVE); Nitrite Urine UA NEGATIVE (Negative); Occult Blood Urine UA NEGATIVE (Negative); Protein Urine UA NEGATIVE (Negative); Specific Gravity Urine UA <=1.005 (1.000-1.035); Urobilinogen Urine UA 0.2 E.U./dL (0.2)
[2020-10-20 18:04] LABS: Culture Indicated Urine Cult Not Indicated; Urine Comments Microscopic Normal
--- NOTE | 2020-10-21 06:55 | PM.OBTRLD ---
Visit Information Visit Information Date of evaluation: 10/20/20 Primary OB Provider: Alia Seaman Reason for Evaluation: Yes rule out labor Comments/Additional reasons for admission: 25yo at 31w1d here with regular cramping. Pt reports cramping starting earliery today, every 4-5 minutes, not alleviated by rest or fluids. No vaginal bleeding or LOF. Feeling baby move regularly. [facility] Medical History (Updated 10/21/20 @ 06:57 by Alia Seaman MD) Depression Heart palpitations (~10/2019) Heavy menstrual period (~2011) Kidney stone (~02/2019) Migraines Surgical History (Updated 05/13/20 @ 10:25 by Mary Galvez, RN) [place] teeth extracted (~2016) Family History (Updated 05/13/20 @ 10:36 by Mary Galvez, RN) Mother Uterine fibroid Receding gums Gastric ulcer Father Hyperlipidemia Anxiety Depression Alcoholic Grandmother Cancer Twin Opioid use disorder Grandfather Polio Diabetes mellitus Myocardial infarct S/P CABG x 4 Hypertension Hyperlipidemia Grandmother Diabetes mellitus Alcoholic Arthritis Grandfather Diabetes mellitus Sister Scoliosis Social History marital status: number of children: 0 household members: spouse lives independently: Yes caregiver/support person: No housing: house pets and animals: Yes (1 6 lb. 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 ) current occupational exposures/hazards: No amanda/spiritism: Non-rastafari special amanda needs: No seatbelt use: always working smoke detector in home: Yes fire extinguisher in home: Yes carbon monox detector in home: Yes do you feel safe at home: Yes Smoking Status: Never smoker second hand exposure: No alcohol intake: former (Pre-: 1-2 drink a week, not all weeks. ) substance use type: does not use during the past year weight has: increased > 10 lbs (gained 15 lbs with quarantine; then lost 10 lbs. ) well-balanced diet: daily or most days daily servings fruits/ve-4 caffeine: Yes (1/2 a can of cola daily, helps with nausea. 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 ), weight lifting, running (Training for half-marathon. ), yoga and normal ROM and activity frequency: daily duration: 45-60 minutes/day Objective Labs Labs: Laboratory Results - last 24 hr 10/20/20 17:15 Urine Color Yellow Urine Appearance Clear Urine pH 7.0 Ur Specific [place] <=1.005 Urine Protein Negative Urine Glucose (UA) Negative Urine Ketones Negative Urine Occult Blood Negative Urine Nitrate Negative Urine Bilirubin Negative Urine Urobilinogen 0.2 Ur Leukocyte Esterase Negative Urine RBC None seen Urine WBC None seen Urine Bacteria None seen Ur Culture Indicated? Cult not indicated Micro UA Comment Microscopic normal Evaluation Evaluation Baseline heart rate: 130 Variability: Moderate (11-25) monitor accelerations: Present Monitor Decelerations: Absent Category of Tracing: Reactive Diagnosis, Plan/Disposition Final Diagnosis (1) Cramping complicating , antepartum: Status: Acute (2) 31 weeks gestation of : Status: Acute Plan/Disposition Plan: 25yo at 31w0d here with cramping. No contractions on monitor - cramping resolving. Safe for d/c home. OB Disposition: home
== END 2020-10-20 18:15 | disposition home or self-care (01) ==
LOC: OB 10-26 12:03
PROVIDERS: PCP Family Medicine; Referring Provider Family Medicine; Visit Provider Family Medicine
DX: O26.893 Other specified pregnancy related conditions, third trimester (principal); R10.9 Unspecified abdominal pain; Z3A.31 31 weeks gestation of pregnancy
CPT/HCPCS: 59025; 81001; G0378; G0379

== ENCOUNTER → 2020-11-24 10:49 | Outpatient (CLI) | payer OTHER, SELFPAY ==
[2020-11-25 09:08] LABS: Strep Grp B PCR NEG for Grp B Strep
== END ==
PROVIDERS: PCP Family Medicine; Referring Provider Family Medicine; Visit Provider Family Medicine
DX: Z34.90 Encounter for supervision of normal pregnancy, unspecified, unspecified trimester (principal); Z3A.36 36 weeks gestation of pregnancy
CPT/HCPCS: 87653

== ENCOUNTER 2020-11-25 17:24 | Outpatient (CLI) | payer OTHER, SELFPAY ==
--- NOTE | 2020-11-25 17:58 | P.TNLD_ITS ---
Visit Information Visit Information Date of evaluation: 11/25/20 Primary OB Provider: Alia Seaman On-call OB Provider: Gisela Howard Reason for Evaluation: Yes rupture of membranes Comments/Additional reasons for admission: Patient is a 25-year-old at 36 weeks gestation with concern for rupture of membranes several hours prior to arrival. She felt a gush of fluid but has not had continued leaking. Denies contractions or bleeding. Reports good movement. Vital Signs Vital Signs: Blood pressure 114/69 heart rate 99 PFSH Medical History Depression Heart palpitations (~10/2019) Heavy menstrual period (~2011) Kidney stone (~02/2019) Migraines Surgical History [place] teeth extracted (~2016) Family History Mother Uterine fibroid Receding gums Gastric ulcer Father Hyperlipidemia Anxiety Depression Alcoholic Grandmother Cancer Twin Opioid use disorder Grandfather Polio Diabetes mellitus Myocardial infarct S/P CABG x 4 Hypertension Hyperlipidemia Grandmother Diabetes mellitus Alcoholic Arthritis Grandfather Diabetes mellitus Sister Scoliosis Social History marital status: number of children: 0 household members: spouse lives independently: Yes caregiver/support person: No housing: house pets and animals: Yes (1 6 lb. 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 ) current occupational exposures/hazards: No amanda/sabianist: Non-mormon special amanda needs: No seatbelt use: always working smoke detector in home: Yes fire extinguisher in home: Yes carbon monox detector in home: Yes do you feel safe at home: Yes Smoking Status: Never smoker second hand exposure: No alcohol intake: former (Pre-: 1-2 drink a week, not all weeks. ) substance use type: does not use during the past year weight has: increased > 10 lbs (gained 15 lbs with qu arantine; then lost 10 lbs. ) well-balanced diet: daily or most days daily servings fruits/ve-4 caffeine: Yes (1/2 a can of cola daily, helps with nausea. 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 ), weight lifting, running (Training for half-marathon. ), yoga and normal ROM and activity frequency: daily duration: 45-60 minutes/day Evaluation Evaluation Baseline heart rate: 130 Variability: Moderate (11-25) monitor accelerations: Present Monitor Decelerations: Absent Category of Tracing: Reactive Non-invasive Membranes Rupture Test: negative Diagnosis, Plan/Disposition Final Diagnosis (1) 36 weeks gestation of : Status: Acute Plan/Disposition Plan: AmniSure negative. NST reactive. Follow-up in clinic as scheduled with Dr. Seaman. OB Disposition: home
== END 2020-11-25 18:03 | disposition home or self-care (01) ==
LOC: OB 11-30 04:48
PROVIDERS: PCP Family Medicine; Referring Provider Family Medicine; Visit Provider Family Medicine
DX: Z03.71 Encounter for suspected problem with amniotic cavity and membrane ruled out (principal); Z3A.36 36 weeks gestation of pregnancy
CPT/HCPCS: 59025; 84112; G0378; G0379

== ENCOUNTER → 2020-11-26 07:18 | Outpatient (CLI) | payer OTHER, SELFPAY ==
--- NOTE | 2020-11-26 07:19 | DI.US.S_ITS ---
PROCEDURE: US OB LIMITED INDICATIONS: SGA OUTSIDE/PRIOR DATING DATA: Last menstrual period (LMP): March 15, 2020 . LMP-based estimated date of delivery (ELLEN): December 20, 2020 . First dating scan (date and location): [facility] . Estimated date of delivery (ELLEN) from first dating scan: August 02, 2020 . TECHNIQUE: Real-time scanning was performed of the fetus, with image documentation and biometric measurements. COMPARISON: None. FINDINGS: General: A single living intrauterine gestation is present. Presentation: Cephalic. Placenta: Placental position is posterior left, without previa. Amniotic fluid index: 11.3 cm, normal range is 5-24 cm. heart rate: 131 beats per minute. Maternal cervical canal: Not well seen. biometrics: Biparietal diameter: 8.7 cm Head circumference: 30.5 cm Abdominal circumference: 32.1 cm Femur length: 7.1 cm Estimated gestational age from initial scan: not applicable. Composite gestational age from present scan: 35 weeks, 5 days Estimated weight and percentile: 2796 +/-414 g Other: None. IMPRESSION: No significant abnormality. Dictated by: Jered Pacheco M.D. on 11/26/2020 at 10:01 Approved by: Jered Pacheco M.D. on 11/26/2020 at 10:07
== END ==
PROVIDERS: PCP Family Medicine; Referring Provider Family Medicine; Visit Provider Family Medicine
DX: Z36.4 Encounter for antenatal screening for fetal growth retardation (principal); O26.843 Uterine size-date discrepancy, third trimester; Z3A.35 35 weeks gestation of pregnancy
CPT/HCPCS: 76815

== ENCOUNTER 2020-12-20 00:22 | Inpatient (IN) | payer OTHER, SELFPAY ==
[2020-12-20 01:51] LABS: Add Manual Diff / Slide Review NO; Basophils Absolute Auto 100 /uL (0-100); Basophils Percent Auto 0.5 % (0-2); Eosinophils Absolute Auto 0 /uL (0-450); Eosinophils Percent Auto 0.1 % (2-4); Hematocrit 39.7 % (36-46); Hemoglobin 13.7 g/dL (12.0-16.0); Lymphocytes Absolute Auto 1900 /uL (1100-4500); Lymphocytes Percent Auto 15.2 % (25-40); Mean Corpuscular HGB Conc 34.6 % (30-36); Mean Corpuscular Volume 89.8 fL (80-100); Monocytes Absolute Auto 900 /uL (0-900); Monocytes Percent Auto 7.6 % (3-14); Neutrophils Absolute Auto 9500 /uL (1500-7000); Neutrophils Percent Auto 76.6 % (50-75); Platelet Count 163 X10^3/uL (150-400); Red Blood Cell Count 4.42 X10^6/uL (4.0-5.2); Red Cell Distribution Width 14.3 % (11.6-14.8); White Blood Cell Count 12.3 X10^3/uL (4.5-11.0)
[2020-12-20 02:01] VITALS: BP 134/87
[2020-12-20 02:02] LABS: COVID19 -Nasal RAPID Negative (Negative)
[2020-12-20] MEDS: fentaNYL 100 MCG/2 ML INJ 50 MCG IV (02:17)
[2020-12-20] MEDS: LACTATED RINGERS 1,000 ML 100 ML IV ×2 (02:18→08:34)
--- NOTE | 2020-12-20 03:02 | PM.AN.REGBLK ---
Regional Block Pre-procedure Procedure: Continuous Lumbar Epidural for L&D Attending OB provider: Alia Seaman PMH/ROS narrative: term labor, no complications ASA Class: II Labs: Hct 39.7 % (36-46) 12/20/20 01:30 Plt Count 163 X10^3/uL (150-400) 12/20/20 01:30 Medications: Current Medications Generic Name Dose Route Start Last Admin Trade Name Freq PRN Reason Stop Dose Admin Calcium Carbonate 1,000 mg 12/20/20 01:21 Calcium Carbonate 500 Mg Tab PO Q2HR PRN Dyspepsia Carboprost Tromethamine 250 mcg 12/20/20 01:21 Carboprost 250 Mcg/Ml Ampul IM Q90M PRN Bleeding Diphenhydramine HCl 25 mg 12/20/20 02:31 Diphenhydramine 50 Mg/Ml Vial IV Q10M PRN Pruritis Fentanyl 50 mcg 12/20/20 01:21 12/20/20 02:17 Fentanyl 100 Mcg/2 Ml Inj IV 50 mcg Q1H PRN Administration Pain, Moderate (4-6) Lactated Ringer's 1,000 mls @ 100 mls/hr 12/20/20 01:30 12/20/20 02:18 Lactated Ringers IV 100 mls/hr CONT MILLIE Administration Oxytocin/Lactated Ringer's 30 unit in 500 mls @ 200 mls/hr 12/20/20 01:21 Oxytocin Premix IV CONT PRN Bleeding Protocol Tranexamic Acid 1,000 mg/ 100 mls @ 200 mls/hr 12/20/20 01:21 Sodium Chloride IV NOW PRN Bleeding FENT 2MCG/ML BUPIV 0.125% EPI 200 mcg in 100 mls @ 6 mls/hr 12/20/20 02:45 Fentanyl/Bupiv/Ns 2mcg/Ml - 0.125% EPIDURAL CONT MILLIE Methylergonovine Maleate 0.2 mg 12/20/20 01:21 Methylergonovine 0.2 Mg Tablet PO Q6HR PRN Heavy Bleeding Methylergonovine Maleate 0.2 mg 12/20/20 01:21 Methylergonovine 0.2 Mg/Ml Vial IM NOW PRN Bleeding Metoclopramide HCl 10 mg 12/20/20 01:21 Metoclopramide 10 Mg/2 Ml Inj IV NOW PRN Nausea And Vomiting Misoprostol 800 mcg 12/20/20 01:21 Misoprostol 200 Mcg Tablet [place] NOW PRN Bleeding Misoprostol 1,000 mcg 12/20/20 01: Misoprostol 200 Mcg Tablet [place] NOW PRN Bleeding Misoprostol 400 mcg 12/20/20 01:21 Misoprostol 200 Mcg Tablet SL NOW PRN Bleeding Nalbuphine HCl 2.5 mg 12/20/20 02:31 Nalbuphine 20 Mg/Ml Ampul IV Q10M PRN Pruritis Naloxone HCl 0.2 mg 12/20/20 01:21 Naloxone 0.4 Mg/Ml Vial IV Q2MIN PRN Opiate Reversal Ondansetron HCl 4 mg 12/20/20 01: Ondansetron 4 Mg/2 Ml Inj IV Q4HR PRN Nausea And Vomiting Oxytocin 10 unit 12/20/20 01:21 Oxytocin 10 Unit/Ml Vial IM NOW PRN Bleeding Allergies: Allergies Allergy/AdvReac Type Severity Reaction Status Date / Time Penicillins Allergy Intermediate Hives Verified 05/13/20 10:10 Procedure Insertion date: 12/20/20 Insertion time: 02:47 Prep/Local: betadine x3 and 1% lidocaine Interspace: L2-3 Patient position: sitting Needle: 18 gauge Hustead (CSE: 27g Pencan through Hustead, clear CSF, 2mg bupiv) Loss of resistance with: saline GRACIE at (cm): 4 Catheter placed at SKIN (cm): 10 Catheter in SPACE (cm): 6 Insertion: No CSF, No Blood, No Paresthesia with insertion, No Paresthesia with injection and No Test dose reaction Initial Medications TEST DOSE time: :47 TEST DOSE: 1.5% lidocaine with epinephrine 1:200k (mL): 3 BOLUS DOSE time: 03:00 BOLUS DOSE (mL): 3 BOLUS DOSE med: other (infusate) Infusion Initial rate (mL/hr): 6 Subsequent interventions: Post-procedure Anesthesia time START: 02:32 Anesthesia time END: 05:20 Post-procedure Anesthesia Assessment: Yes CV function: HR/BP stable, Yes Resp function: RR/sat/airway adequate, Yes Mental status appropriate and No Anesthesia complications
--- NOTE | 2020-12-20 05:42 | PM.OBHP.IH.1 ---
OB HPI Date/Time Date of admission: 12/20/20 Date Patient Seen: 12/20/20 Time Patient Seen: 04:15 History of Present Condition Chief complaint: MATERNITY ELLEN Calculator Estimated Delivery Date Method Current WG Current Estimate 12/22/20 Manual 39w 5d Final ELLEN - LESLEE Other Estimates 12/22/20 LMP (Certain) 39w 5d 12/20/20 Ultrasound #1 40w 0d Estimated Gestational Age (weeks): 39w5d : 2 Para: 0 Narrative: Pt is a 25yo at 39w5d who presented with LOF at home. The pt reports feeling a gush of fluid around 11:30pm. Around an hour later she started having painful contractions. She denies any vaginal bleeding. She has been feeling her baby move regularly. The pts has been uncomplicated. She did have significant anxiety and depression, and is currently doing well on Sertraline. care: good care, initiated at week # (9) and pounds weight gain (28) Dating criteria OB: LMP confirmed by 1st trimester US Ultrasounds: normal 1st trimester US and normal mid trimester US Obstetrical complications: none Medical complications OB: psychiatric (anxiety and depression on Sertraline) Preadmission Labs Last OB Lab Results: Blood Type A Positive 12/20/20 01:30 12/20/20 Antibody Screen Negative 12/20/20 01:30 12/20/20 Hematocrit 39.7 % (36-46) 12/20/20 01:30 12/20/20 Hemoglobin 13.7 g/dL (12.0-16.0) 12/20/20 01:30 12/20/20 Hepatitis B Surface Antigen Negative s/c (NEGATIVE) 05/21/20 10:27 05/21/20 Hepatitis C Antibody Negative s/c (NEGATIVE) 05/21/20 10:27 05/21/20 Rubella Antibody 22.9 IU/mL (>15) 05/21/20 10:27 05/21/20 Varicella-Zoster IgG Antibody 1575 index (Immune >165) 05/21/20 10:27 05/21/20 Glucose 1 Hour 119 mg/dL (76-139) 09/04/20 09:54 09/04/20 Group B Streptococcus (PCR) Neg for grp b strep 11/24/20 10:49 11/24/20 -: Urine: negative External Labs -: Urine: negative Prior (ies) Past Pregnancies Del. Date GA/Weeks Labor Lgth Wt Sex Route Outcome Anesthesia Place Delv Breastfeed Preg Comp Name 11/19/18 5-6 spontaneous Evaluation Evaluation Baseline heart rate: 120 Variability: Moderate (11-25) monitor accelerations: Present Monitor Decelerations: Absent Contraction Frequency (minutes): 2 Uterine Contraction Intensity: Strong/Firm Status: Category l Dilation (cm): 10 Effacement (%): 100 station: +3 PFSH Medical History Depression Heart palpitations (~10/2019) Heavy menstrual period (~2011) Kidney stone (~02/2019) Migraines Surgical History [place] teeth extracted (~2016) Family History Mother Uterine fibroid Receding gums Gastric ulcer Father Hyperlipidemia Anxiety Depression Alcoholic Grandmother Cancer Twin Opioid use disorder Grandfather Polio Diabetes mellitus Myocardial infarct S/P CABG x 4 Hypertension Hyperlipidemia Grandmother Diabetes mellitus Alcoholic Arthritis Grandfather Diabetes mellitus Sister Scoliosis Social History marital status: number of children: 0 household members: spouse lives independently: Yes caregiver/support person: No housing: house pets and animals: Yes (1 6 lb. 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 ) current occupational exposures/hazards: No amanda/restorationist: Non-jehovah's witness special amanda needs: No seatbelt use: always working smoke detector in home: Yes fire extinguisher in home: Yes carbon monox detector in home: Yes do you feel safe at home: Yes Smoking Status: Never smoker second hand exposure: No alcohol intake: former (Pre-: 1-2 drink a week, not all weeks. ) substance use type: does not use during the past year weight has: increased > 10 lbs (gained 15 lbs with quarantine; then lost 10 lbs. ) well-balanced diet: daily or most days daily servings fruits/ve-4 caffeine: Yes (1/2 a can of cola daily, helps with nausea. 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 ), weight lifting, running (Training for half-marathon. ), yoga and normal ROM and activity frequency: daily duration: 45-60 minutes/day Meds Home Medications and Allergies Home Medications Medication Instructions Recorded Confirmed Type vits no.126-ferrous fum 1 tab DAILY 04/30/20 07/09/20 History 28 mg iron-folic acid 800 mcg tablet (Classic ) doxylamine succinate 25 mg tablet 25 mg PO BEDTIME PRN 05/13/20 07/09/20 History metoclopramide HCl 10 mg tablet 10 mg PO QACHS #30 tab 05/13/20 07/09/20 Rx (Reglan) pyridoxine (vitamin B6) 100 mg 50 mg PO DAILY 05/13/20 07/09/20 History tablet sertraline 25 mg tablet 25 mg PO DAILY #30 tab 07/16/20 07/16/20 Rx promethazine 25 mg tablet 25 mg PO TID PRN #30 tab 08/02/20 Rx Allergies Allergy/AdvReac Type Severity Reaction Status Date / Time Penicillins Allergy Intermediate Hives Verified 05/13/20 10:10 OB Exam Resp Effort & Inspection: normal respiratory effort Auscultation: clear to auscultation bilaterally Cardio Rate: regular rate Rhythm: regular rhythm Heart Sounds: S1 normal, S2 normal and no murmurs GI Inspection: non-distended Palpation: soft and No tender Presentation: vertex Objective Labs Result Diagrams: 12/20/20 01:30 Labs: Laboratory Results - last 24 hr 12/20/20 12/20/20 12/20/20 01:30 01:30 01:30 WBC 12.3 H RBC 4.42 Hgb 13.7 Hct 39.7 MCV 89.8 MCH 31.0 MCHC 34.6 RDW 14.3 Plt Count 163 Neut % (Auto) 76.6 H Lymph % (Auto) 15.2 L Travis % (Auto) 7.6 Eos % (Auto) 0.1 L Baso % (Auto) 0.5 Neut # (Auto) 9500 H Lymph # (Auto) 1900 Travis # (Auto) 900 Eos # (Auto) 0 Baso # (Auto) 100 SARS-CoV-2 (PCR) Negative Blood Type A Positive Antibody Screen Negative Assessment and Plan Assessment and Plan Assessment and Plan narrative: 25yo at 39w5d here in active labor with SROM at home prior to presentation. GBS negative, Rh positive. No significant complications with . - Expectant management, anticipate - FHT reassuring - GBS negative, no prophylaxis indicated - Epidural in place for pain control - Start pushing now
--- NOTE | 2020-12-20 05:44 | P.PCNOB_ITS ---
Labor & Delivery Delivery date: 12/20/20 Intrapartal Events: None Cervical ripening method: none Induction method: none Delivery monitor: external FHT Route of delivery: Episiotomy description: None L&D Laceration Description: Perineal - 2nd Degree Delivery repair: chromic Estimated blood loss (mL): 250 Anesthesia Type: Epidural Complications: None Narrative: PROCEDURE: at 39w5d presented with SROM in labor and was admitted to Labor and Delivery. The patient progressed through the 1st stage over 5 hours. Pain was controlled with an epidural. The patient progressed through the 2nd stage over 42 minutes and delivered a viable male infant with APGARs 9/9 at 5:10 via without complications. The baby was delivered to the maternal abdomen with spontaneous cry, and the cord was clamped and cut after it stopped pulsating. The perineum and vagina were inspected with 2nd degree perineal laceration repaired with 2-O Chromic in the usual fashion. PREPROCEDURE DIAGNOSIS: Intrauterine at 39w5d GBS negative RH positive POSTPROCEDURE DIAGNOSIS: Intrauterine at 39w5d, delivered Same as preprocedure [place] Baby 1: gender: Male Presentation: vertex Position: Right Occiput Anterior Placenta delivery description: Spontaneous Cord Vessel Description: 3 Vessels score (1 min): 9 score (5 min): 9 weight: 7 lb 14.88 oz Plan for aftercare: Routine care
[2020-12-20] MEDS: LANOLIN OINT 7 GM 1 APPLIC TOP (06:49)
[2020-12-20] MEDS: IBUPROFEN 600 MG TABLET PO ×3 (06:52→20:55)
[2020-12-20] MEDS: ACETAMINOPHEN 325 MG TABLET 650 MG PO (06:55)
[2020-12-20] MEDS: DERMOPLAST SPRAY 20% 60 ML 1 SPRAY TOP (07:01)
[2020-12-20] MEDS: DOCUSATE 100 MG CAPSULE PO (10:03)
[2020-12-20] MEDS: PRENATAL VIT,CALC/IRON/FOLIC 1 TABLET 1 TAB PO (10:04)
[2020-12-20 14:55] VITALS: TEMP 37.3
[2020-12-21] MEDS: IBUPROFEN 600 MG TABLET PO (03:52)
--- NOTE | 2020-12-21 09:06 | P.DS_ITS ---
Discharge Providers Provider Date of admission: 12/20/20 00:22 Discharge Date: 12/21/20 Primary care physician: Alia Seaman MD Consults: 12/20/20 01:23 Consult to Anesthesiology Urgent Comment: Consulting Provider: Anesthesiologist Reason for consultation: labor 12/21/20 05:41 Consult to Watch [employer] Routine Comment: Discharge provider: Alia Seaman MD Summary Hospital Course Date Patient Seen: 12/21/20 Time Patient Seen: 08:00 Diagnoses: 39w5d gestation GBS negative Rh positive Hospital Course: The patient presented in active labor with SROM at home. She received an epidural for pain control. She progressed to complete and had spontaneous vaginal delivery of a viable baby boy on 12/20/2020. A second-degree perineal laceration was then repaired. The patient tolerated delivery well. , there were no complications. At the time of discharge she was voiding, ambulating, and passing flatus without difficulty. Her lochia was decreasing appropriately. She was breast-feeding with good latch but some nipple discomfort. did see her while she was in the hospital. Her pain was adequately controlled. She will follow up in clinic in 6 weeks for her check. Peripartum Data Delivery Method: Natural Vaginal Laceration Description: Perineal - 2nd Degree Episiotomy description: None Procedures: Spontaneous vaginal delivery complications: none [place] 1: Gender: Male Disposition of : home Discharge Diagnosis (1) Spontaneous vaginal delivery: Status: Acute (2) Depression: Status: Acute Status at Discharge Cognitive/behavioral status at discharge: oriented Functional status at discharge: independent ambulation Overall status at discharge: patient is progressing back to baseline Time Spent with Patient Time attestation: Total time spent providing and/or coordinating discharge services: Objective Labs Result Diagrams: 12/20/20 01:30 Exam Narrative Exam Narrative: Gen: NAD, sitting comfortably in bed, appears well CV: RRR, no murmurs Resp: clear to auscultation bilaterally Abd: soft, appropriately tender, fundus firm and below the umbilicus, nondistended Ext: no edema Discharge Plan Discharge Plan Patient Disposition: Home Discharge orders & Medications Prescriptions: Continued sertraline 25 mg tablet 25 mg PO DAILY Qty: 30 RF: 2 Classic 28 mg iron- 800 mcg Tablet 1 tab DAILY RF: 0 Discontinued promethazine 25 mg tablet 25 mg PO TID PRN (Reason: headache) Qty: 30 RF: 0 metoclopramide HCl [Reglan] 10 mg tablet 10 mg PO QACHS Qty: 30 RF: 0 pyridoxine (vitamin B6) 100 mg tablet 50 mg PO DAILY RF: 0 doxylamine succinate 25 mg tablet 25 mg PO BEDTIME PRNRF: 0 Follow up/Referrals: Alia Seaman MD [Primary Care Provider] - 6 Weeks (Appointment with on at11:30 am for check. ) Diet/Activity/Treatments Diet: Diet as Tolerated and Regular Skin/Wound/Dressing Care Report to your healthcare provider any signs of infection, such as:: chills, fev er, increased pain and unusual drainage Visit Report/Discharge Packet Instructions: DI for Labor and Delivery, Vaginal Visit Report Forms: Patient Portal/API, Stroke Signs & Symptoms Discharge Data Primary Care Provider: Alia Seaman Discharges patient from system. Discharge Date/Time: 12/21/20 12:29
[2020-12-21 10:35] VITALS: BP 120/71; PULSE 86; RESP 16; TEMP 36.2
== END 2020-12-21 12:29 | disposition home or self-care (01) | DRG 807 ==
PROVIDERS: Admitting Provider Family Medicine; PCP Family Medicine; Referring Provider Family Medicine; Visit Provider Family Medicine
DX: O42.02 Full-term premature rupture of membranes, onset of labor within 24 hours of rupture (principal); Z37.0 Single live birth; Z3A.39 39 weeks gestation of pregnancy; O99.344 Other mental disorders complicating childbirth; F41.9 Anxiety disorder, unspecified; F32.9 Major depressive disorder, single episode, unspecified; Z20.822 Contact with and (suspected) exposure to COVID-19
CPT/HCPCS: 01967; 36415; 59025; 59050; 59400; 84112; 85025; 86850; 86900; 86901; 87635; C9803; G0379; J3010